=== PATIENT | male | born 1945 | race Caucasian/White ===

== ENCOUNTER 2017-01-28 11:28 | Day surgery (SDC) | payer MEDICARE, OTHER ==
[~2017-01-28 11:28] MED LIST: ASPIR-LOW81 MG PO; CIPRO 500MG TA500 MG PO; COREG CR40 MG; LISINOP/HCTZ TAB 10-
--- NOTE | 2017-01-28 13:40 | Operative Note ---
Colonoscopy ([facility]) Procedure date: 01/28/17 Date of : 49 Procedure:Colonoscopy Colonoscopy Indications: Mr. Eric is a 71-year-old gentleman who is here for follow-up screening/ surveillance colonoscopy. He does state that he had a colonoscopy 5 years ago which time 2 colon polyps were removed. He reports no abdominal pain, weight loss, change in his bowel habits or rectal bleeding. He reports no family history of colon cancer. Performing Provider: Selwyn Rosa MD Referrring Provider: Asya GUERRA Sedation: Fentanyl 200 mg IV/Versed 9 mg IV Procedure: Prior to the procedure, a history and physical exam was performed, and patient medications and allergies were reviewed. The risks and benefits of the procedure and the sedation options and risks were discussed with the patient. All questions were answered and informed consent was obtained. Patient identification and proposed procedure were verified by the physician and the nurse. The patient was placed in a left lateral decubitus position. Throughout the procedure, the patient's blood pressure, pulse, and oxygen saturations were monitored continuously. Findings: On digital rectal examination there was normal rectal tone. There were no external hemorrhoids. The prostate was firm and mildly asymmetric with small nodule on RIGHT lobe of prostate margin. The colonoscope was introduced through the anal canal to the rectum and advanced to the cecum. The ileocecal valve and appendiceal orifice were identified. The cecum, ascending, transverse, descending, sigmoid and rectum were grossly normal. There were no mucosal abnormalities identified. Upon retroflexion within the rectum there were grade 1 internal hemorrhoids. Impressions: 1. Normal colonoscopy 2. Grade 1 internal hemorrhoids 3. Firm asymmetric prostate with small RIGHT lobe margin nodule Recommendations: The patient will not require screening/surveillance colonoscopy again for 10 years by ACS guidelines. I would encourage fiber supplementation on a long-term daily maintenance basis. I would recommend PSA testing and urologic evaluation. Complications: None EBL (ml): 0 at 1340
[2017-01-28 16:18] VITALS: BP 153/89
== END 2017-01-28 15:01 | disposition home or self-care (01) ==
LOC: SDC 11:28
PROVIDERS: Internal Medicine Gastroenterology
PROC: 0DJD8ZZ Inspection of Lower Intestinal Tract, Via Natural or Artificial Opening Endoscopic (ICD-10-PCS; principal; 2017-01-28 12:30)
DX: Z12.11 Encounter for screening for malignant neoplasm of colon (principal); Z86.010 Personal history of colon polyps; K64.0 First degree hemorrhoids; Z12.5 Encounter for screening for malignant neoplasm of prostate
CPT/HCPCS: G0103

== ENCOUNTER → 2017-03-21 | Outpatient (CLI) | payer MEDICARE, OTHER ==
[~2017-03-21] MED LIST changes: +COREG CR40 MG PO; +GLUCOSAMINE1000 MG PO; +JALYN 0.5 MG-0.1 CAP PO; +LEVAQUIN500 MG PO; +LISINOPRIL 10MG10 MG PO; +PROTONIX 40MG T40 MG PO; +TAMSULOSIN HYD0.4 MG PO
--- NOTE | 2017-03-21 13:13 | RADIOLOGY REPORT PS360 ---
History and Indications: Hypertension, family history, chest pain Procedure: Patient exercised on Hieu protocol 7 minutes, resting heart rate was 72 bpm, resting blood pressure 181 /110 millimeters of mercury, with exercise maximum heart rate achieved was 136 weeks 5 the 85% of the maximum predicted heart rate and a blood pressure was 210/96. The patient has good exercise capacity achieved 10.1mets of workload on treadmill, the blood pressure response to exercise was hypertensive. Test was started due to shortness of breath and fatigue, patient denied any complained of chest pain. Electrocardiogram: Resting electrocardiogram showed sinus rhythm, with exercise there is [address] segment depression noted from the baseline EKG in the recovery. The EKG portion of the exercise Myoview is positive for ischemia. Cardiac stress and resting SPECT images: Cardiac stress and rest SPECT images were obtained using technetium 99 Myoview 10.2 mCi at rest and 32.0 mCi at stress, gated SPECT further analysis of segmental wall motion and calculation of ejection fraction also done. Cardiac stress and rest SPECT images show decreased tracer activity at the apex which improves on the resting images suggestive of reversible ischemia in that area. Computer derived ejection fraction is 54% with no obvious regional wall motion abnormality, right ventricle is mildly enlarged with normal contractility. Conclusion: 1. The EKG portion of the exercise Myoview is positive for ischemia, patient has good exercise capacity achieved 10.1mets of workload on treadmill, the blood pressure response to exercise was hypertensive. Test was started due to shortness of breath. 2. Scintigraphic evidence of mild reversible ischemia involving the apex, computer derived ejection fraction 54% with no obvious regional wall motion abnormality, right ventricle is mildly enlarged with normal contractility. 3. Abnormal exercise Myoview study.
--- NOTE | 2017-03-21 16:06 | RADIOLOGY REPORT PS360 ---
PROCEDURE: 2-D M-mode and color Doppler study INDICATIONS FOR THE TEST: Chest pain X COPD Heart Murmur Tobacco Smoking Palpitations Fatigue Syncope Edema HypertensionXDiabetes Mellitus Rheumatic Fever SOB SILVERMAN Obesity Hyperlipidemia Family History HD Additional History PATIENT INFORMATION HEIGHT: 70 WEIGHT:195 GENDER: Male B/P:170/96 2-D/M-MODE INTERPRETATION: 2-D MEASUREMENTS OBSERVED VALUES IN CMS Right Ventricular Dimension (RVDd) 3.0 Interventricular Septum (Thickness)(IVsd) 1.0 Left Ventricular Internal Dimensions(LVIDd) 4.8 Left Ventricular Posterior Wall (Thickness)(LVPWd) .9 Aortic Root 3.0 Aortic Cusp Separation 1.8 Left Atrial Dimensions (LAD) 3.4 2D 1. Left atrium is qualitatively mildly enlarged, left ventricle is normal size, there is mild concentric left ventricular hypertrophy, visually estimated ejection fraction of 55% with no obvious regional wall motion abnormality. 2. The right atrium is normal size, right ventricle is mildly enlarged with normal contractility. 3. The aortic valve is minimally thickened and fibrosed. 4. The mitral and tricuspid valve leaflets are minimally thickened. 5. The pulmonic valve is poorly visualized. 6. No significant pericardial effusion noted. DOPPLER INTERROGATION: Doppler interrogation of the aortic, mitral and tricuspid valvular presence of mild mitral and tricuspid regurgitation, tricuspid and jet velocity is insufficient for calculation of the right ventricular systolic pressure, grade 1 diastolic dysfunction seen with tissue Doppler evidence of raised left atrial pressure. CONCLUSION: 1. Mildly enlarged left atrium, normal left ventricular size, mild concentric left ventricular hypertrophy, visually estimated ejection fraction 55% with no obvious regional wall motion abnormality, grade 1 diastolic dysfunction seen with tissue Doppler evidence of raised left atrial pressure. 2. Mildly enlarged right ventricle with normal contractility. 3. Mild mitral and tricuspid regurgitation. 4. No significant pericardial effusion noted.
== END ==
LOC: RAD 03-20 07:00 → RT 03-20 10:15 → RAD 06:30
DX: R07.9 Chest pain, unspecified (principal); I10 Essential (primary) hypertension; I25.84 Coronary atherosclerosis due to calcified coronary lesion
CPT/HCPCS: A9502

== ENCOUNTER → 2017-04-01 | Day surgery (SDC) | payer MEDICARE, OTHER ==
[2017-04-01 08:45] LABS: LYMPH # 2.3 K/mm3 (0.7-4.5); LYMPH % 31.5 % (10-50)
[2017-04-01 08:50] LABS: BUN 10 mg/dL (7-18); GFR (ESTIMATED) 96 ML/MIN (>60)
--- NOTE | 2017-04-01 13:52 | RADIOLOGY REPORT PS360 ---
CARDIAC CATHETERIZATION DATE OF CATHETERIZATION:04/01/2017 11:59 AM PROCEDURES: 1. Left heart catheterization 2. Left ventriculogram 3. Selective coronary angiogram 4. Drug-eluting stent deployment to the proximal and mid LAD 5. Drug-eluting stent deployment to the distal dominant right coronary artery INDICATION FOR TEST: 1. Coronary artery disease 2. Abnormal Myoview 3. Class IV angina Informed consent was obtained prior to the procedure. COMPLICATIONS: None ESTIMATED BLOOD LOSS: Less than 10 ml. TECHNIQUE: One percent lidocaine used to anesthetize the right anterior aspect of the wrist. The right radial artery was accessed via the Seldinger technique. A 6 Stateless sheath was placed in the right radial artery. 2.5 mg of verapamil, 800 mcg of nitroglycerin and 5000 U Heparin were given through the arterial sheath. The trap catheter was used to perform left heart catheterization left ventriculogram and selective coronary angiogram. At the end of the diagnostic angiogram 4000 units of heparin was administered intravenously giving an ACT out of range along with Brilinta 180 mg. And [id number] left guide catheter was used intubate the left main artery and a choice PT extra-support wire was placed into the distal LAD. Primary stenting cannot be performed therefore 2.5 x 20 mm noncompliant balloon was deployed in the proximal LAD at 20 lise. This allowed a 3 mm x 38 mm resolute Guillermo stent to be deployed at 20 lise reducing the stenosis to 30%. Distally there is an age dissection therefore 3 mm x 9 mm resolute [place] stent was deployed at 12 lise distally reducing the stenosis and dissection to 0%. The balloon was brought back and deployed at 20 lise to mesh the 2 stents. Following this a 3.25 x 15 mm noncompliant balloon was placed in the proximal portion and deployed on 2 separate occasions with the second inflation following advancement of the balloon. Both were deployed at 20 lise. NANCY-3 flow was present with complete reduction of the stenosis to 0%. After achieving excellent angiographic results the apparatus was removed and the same guide catheter was used intubate the right coronary artery. A BMW wire was placed into the PLVB and a 3 mm x 12 mm resolute [place] stent was deployed at 12 lise reducing the stenosis to 0%. Excellent angiographic results were obtained with NANCY-3 flow down both vessels before and after the procedure. At the end of the procedure the sheath was removed good hemostasis was achieved using TR banding patient was transferred to the postop holding area in stable condition ANGIOGRAPHIC RESULTS: 1. The left main artery normal 2. The left anterior descending artery has a proximal concentric calcified 90% stenosis followed by mid vessel 60% concentric stenosis 3. The circumflex artery is a nondominant yet still large vessel and has a very proximal 30% followed by a mid vessel concentric 50% stenosis extending from the circumflex artery into the large first obtuse marginal artery 4. The right coronary artery is a dominant vessel and has proximal 20% followed by a 30-40% followed by mid vessel 40 and 50% concentric stenosis followed by a distal concentric 80-90% stenosis. The very large posterior lateral ventricular branch has proximal 40% stenoses with an 80% stenosis and a 2 mm second marginal branch. The posterior descending artery has mild 20% stenoses 5. The AMIN ventriculogram reveals normal 65% 6. The left ventricular end-diastolic pressure 10 mmHg IMPRESSION: 1. Severe 2 vessel coronary artery disease involving the proximal and mid LAD along with the distal dominant right coronary artery 2. Successful stenting of the proximal to mid LAD severe disease reduced to 0% with 2 drug-eluting stents 3. Successful stenting of the distal dominant right coronary artery severe disease reduced to 0% with 1 drug-eluting stent 4. Moderate disease in the mid right coronary artery and mid circumflex artery 5. Normal ejection fraction 6. Normal left ventricular end-diastolic pressure PLAN: 1. Brilinta and aspirin 2. LDL less than 55 3. Risk factor modification 4. Cardiac rehabilitation 5. Avoidance of tobacco products 6. Aggressive risk factor modification
[2017-04-01 16:13] VITALS: BP 164/96
== END ==
LOC: CATHLAB 08:04
PROVIDERS: Internal Medicine
PROC: B2111ZZ Fluoroscopy of Multiple Coronary Arteries using Low Osmolar Contrast (ICD-10-PCS; 2017-04-01)
PROC: B2151ZZ Fluoroscopy of Left Heart using Low Osmolar Contrast (ICD-10-PCS; 2017-04-01)
PROC: 027135Z Dilation of Coronary Artery, Two Arteries with Two Drug-eluting Intraluminal Devices, Percutaneous Approach (ICD-10-PCS; 2017-04-01)
PROC: 4A023N7 Measurement of Cardiac Sampling and Pressure, Left Heart, Percutaneous Approach (ICD-10-PCS; principal; 2017-04-01 09:45)
DX: I25.119 Atherosclerotic heart disease of native coronary artery with unspecified angina pectoris (principal); Z72.0 Tobacco use; R94.39 Abnormal result of other cardiovascular function study
CPT/HCPCS: C1725; C1769; C1876; J1644; Q9967